=== PATIENT | female | born 1965 | race Caucasian/White ===

== ENCOUNTER 2017-08-16 12:19 | Emergency (ER) | payer OTHER, SELFPAY ==
[2017-08-16 12:55] VITALS: BP 108/84; PULSE 68; RESP 20; TEMP 36.6; O2SAT 96; BMI 40.2
--- NOTE | 2017-08-16 13:36 | HMH.EDUTC ---
[facility] [place] Disposition Clinical Impression: Acute bronchitis Qualifiers: Bronchitis organism: other organism Qualified Code(s): J20.8 - Acute bronchitis due to other specified organisms Disposition: Home, Self-Care Condition on Discharge: Good Additional Instructions: inCrease fluids Rest Follow-up with primary care this week Tylenol or ibuprofen as needed for pain or fever If symptoms worsen or do not improve return or be seen in the ER Prescriptions: Azithromycin [Zithromax 250mg tab] 250 mg PO DIRECTED #6 tab Benzonatate [Tessalon Perle 100mg Cap] 100 mg PO BID PRN 7 Days #14 cap PRN Reason: Cough Time of Disposition: 13:41 Medical Decision Making Vital Signs: 08/16/17 12:55 Temperature 97.9 F Temperature Source Temporal Artery Scan Pulse Rate [Radial] 68 Respiratory Rate 20 Blood Pressure [Right Arm] 108/84 Blood Pressure Mean [Right Arm] 92 Blood Pressure Source [Right Arm] Automatic Cuff Blood Pressure Position [Right Arm] Sitting 02 Sat by Pulse Oximetry 96 Oxygen Delivery Method Room Air - Niall Inquiry Pt receiving controlled substance: No [facility] [place] HPI - General Chief complaint: Fever Stated complaint: congested fever Time Seen by Provider: 08/16/17 13:36 Mode of Arrival: Ambulatory Source of Information: Patient Limitations: No Limitations Description of Symptoms (Recalled from Triage Doc. by RN): COUGHING AND CAN'T SLEEP AT NIGHT X 1 WEEK HEENT Symptoms (Recalled from RN notes): No Resp Symptoms (Recalled from RN notes): Yes Skin Symptoms (Recalled from RN notes): No MS Symptoms (Recalled from RN notes): No Functional Status (Recalled from RN notes): NA - History of Present Illness Provider Complaint: 52-year-old female presents today for coughing up yellow sputum, fever, and pain in the chest from coughing for 1 week - Related Data Home Medications Medication Instructions Recorded Confirmed Albuterol Sulfate [Albuterol HFA 1 % * DAILY 08/16/17 08/16/17 Inhaler] Budesonide [Pulmicort Flexhaler] 90 mcg INHALATION DAILY 08/16/17 08/16/17 Omeprazole [Omeprazole 20mg 20 mg PO DAILY 08/16/17 08/16/17 Capsule] Simvastatin [Simvastatin] 20 mg PO DAILY 08/16/17 08/16/17 Sucralfate [Sucralfate 1gm 1 gm PO DAILY 08/16/17 08/16/17 Tab] Topiramate [Topiramate] 50 mg PO DAILY 08/16/17 08/16/17 diazePAM [diazePAM 5mg Tablet] 5 mg PO DAILY 08/16/17 08/16/17 Previous Rx's Medication Instructions Recorded Azithromycin [Zithromax 250mg 250 mg PO DIRECTED #6 tab 08/16/17 tab] Benzonatate [Tessalon Perle 100mg 100 mg PO BID PRN 7 Days #14 cap 08/16/17 Cap] Allergies Allergy/AdvReac Type Severity Reaction Status Date / Time codeine [CODEINE] Allergy Unknown CHEST PAIN Unverified 05/25/17 14:39 ibuprofen [IBUPROFEN] Allergy Unknown CHEST Unverified 05/25/17 14:39 PAIN, STOMACH PAIN - Worker's Comp Is this a Worker's Comp case?: No [facility] History I have reviewed the patient's past medical history: Yes - Social History Alcohol Intake: never - Psychiatric History Expresses thoughts of harming self/others: None Suicide Plan Description: No Plan ROS Obtained: Yes All systems reviewed & no additional complaints, Yes Systems reviewed as appropriate & no additional complaints - Constitutional Constitutional: Reports system reviewed and no additional complaints, except as docu, Denies chills, Reports fever(s), Denies stops breathing during sleep - Eyes Eyes: Reports system reviewed and no additional complaints, except as docu - ENT Ears, Nose, Mouth, and Throat: Reports system reviewed and no additional complaints, except as docu, Denies headache(s), Reports nasal congestion, Denies sore throat - Cardiovascular Cardiovascular: Reports system reviewed and no additional complaints, except as docu - Respiratory Respiratory: Yes system reviewed and no additional complaints, except as docu, Yes as per HPI, Yes change in phle
--- NOTE | 2017-08-16 13:39 | ED_ITS ---
[facility] [place] Clinical Impression: Acute bronchitis Qualifiers: Bronchitis organism: other organism Qualified Code(s): J20.8 - Acute bronchitis due to other specified organisms Disposition: Home, Self-Care Condition on Discharge: Good Additional Instructions: inCrease fluids Rest Follow-up with primary care this week Tylenol or ibuprofen as needed for pain or fever If symptoms worsen or do not improve return or be seen in the ER Prescriptions: Azithromycin [Zithromax 250mg tab] 250 mg PO DIRECTED #6 tab Benzonatate [Tessalon Perle 100mg Cap] 100 mg PO BID PRN 7 Days #14 cap PRN Reason: Cough Time of Disposition: 13:41 Medical Decision Making Vital Signs: 08/16/17 12:55 Temperature 97.9 F Temperature Source Temporal Artery Scan Pulse Rate [Radial] 68 Respiratory Rate 20 Blood Pressure [Right Arm] 108/84 Blood Pressure Mean [Right Arm] 92 Blood Pressure Source [Right Arm] Automatic Cuff Blood Pressure Position [Right Arm] Sitting 02 Sat by Pulse Oximetry 96 Oxygen Delivery Method Room Air - Niall Inquiry Pt receiving controlled substance: No [facility] [place]PI - General Chief complaint: Fever Stated complaint: congested fever Time Seen by Provider: 08/16/17 13:36 Mode of Arrival: Ambulatory Source of Information: Patient Limitations: No Limitations Description of Symptoms (Recalled from Triage Doc. by RN): COUGHING AND CAN'T SLEEP AT NIGHT X 1 WEEK HEENT Symptoms (Recalled from RN notes): No Resp Symptoms (Recalled from RN notes): Yes Skin Symptoms (Recalled from RN notes): No MS Symptoms (Recalled from RN notes): No Functional Status (Recalled from RN notes): NA - History of Present Illness Provider Complaint: 52-year-old female presents today for coughing up yellow sputum, fever, and pain in the chest from coughing for 1 week - Related Data Home Medications Medication Instructions Recorded Confirmed Albuterol Sulfate [Albuterol HFA 1 % * DAILY 08/16/17 08/16/17 Inhaler] Budesonide [Pulmicort Flexhaler] 90 mcg INHALATION DAILY 08/16/17 08/16/17 Omeprazole [Omeprazole 20mg 20 mg PO DAILY 08/16/17 08/16/17 Capsule] Simvastatin [Simvastatin] 20 mg PO DAILY 08/16/17 08/16/17 Sucralfate [Sucralfate 1gm 1 gm PO DAILY 08/16/17 08/16/17 Tab] Topiramate [Topiramate] 50 mg PO DAILY 08/16/17 08/16/17 diazePAM [diazePAM 5mg Tablet] 5 mg PO DAILY 08/16/17 08/16/17 Previous Rx's Medication Instructions Recorded Azithromycin [Zithromax 250mg 250 mg PO DIRECTED #6 tab 08/16/17 tab] Benzonatate [Tessalon Perle 100mg 100 mg PO BID PRN 7 Days #14 cap 08/16/17 Cap] Allergies Allergy/AdvReac Type Severity Reaction Status Date / Time codeine [CODEINE] Allergy Unknown CHEST PAIN Unverified 05/25/17 14:39 ibuprofen [IBUPROFEN] Allergy Unknown CHEST Unverified 05/25/17 14:39 PAIN, STOMACH PAIN - Worker's Comp Is this a Worker's Comp case?: No H History I have reviewed the patient's past medical history: Yes - Social History Alcohol Intake: never - Psychiatric History Expresses thoughts of harming self/others: None Suicide Plan Description: No Plan ROS Obtained: Yes All systems reviewed & no additional complaints, Yes Systems
[2017-08-16 13:43] VITALS: BP 108/84; PULSE 68; RESP 20; TEMP 36.6
== END 2017-08-16 13:45 | disposition home or self-care (01) ==
PROVIDERS: Emergency Provider Nurse Practitioner Family
DX: J20.8 Acute bronchitis due to other specified organisms (principal); Z79.899 Other long term (current) drug therapy; Z88.6 Allergy status to analgesic agent
CPT/HCPCS: 99202

== ENCOUNTER 2017-08-30 20:50 | Emergency (ER) | payer OTHER, SELFPAY ==
[2017-08-30 21:16] VITALS: BP 150/52; PULSE 80; RESP 20; TEMP 36.6; O2SAT 95; BMI 40.2
--- NOTE | 2017-08-30 21:29 | HMH.EDUTC ---
[facility] [place] Disposition Clinical Impression: Acute muscle stiffness of neck Disposition: Home, Self-Care Condition on Discharge: Good Instructions: DI for Neck Sprain Additional Instructions: * Flexeril as needed for muscle spasm/stiffness but remember, it WILL cause drowsiness. Start with half and if tolerate ok and need more, increase to full tablet. You can NOT take it and drive, operate machinery or care for small children * Ice x15-20 mins 3-4 times a day but if that doesn't help, try moist heat x15-20 mins 3-4 times a day to affected area * Keep this area active. No movement leads to more stiffness. However, take it easy too and avoid heavy lifting, pushing, pulling. * Go back to normal sleeping positions. Consider neck support when sleeping Follow up with primary care in [facility] if no improvement over the next 48 hours AND for any new or worsening symptoms. Prescriptions: Cyclobenzaprine HCl [Flexeril 10mg tablet] 5 - 10 mg PO Q8HP PRN 30 Days #8 tab PRN Reason: Muscle Spasm Time of Disposition: 21:37 Medical Decision Making - Niall Inquiry Pt receiving controlled substance: No Vital Signs: 08/30/17 21:16 Temperature 97.9 F Temperature Source Temporal Artery Scan Pulse Rate [Brachial] 80 Respiratory Rate 20 Blood Pressure [Right Arm] 150/52 Blood Pressure Mean [Right Arm] 84 Blood Pressure Position [Right Arm] Sitting 02 Sat by Pulse Oximetry 95 [facility] [place] HPI - General Stated complaint: left luc of head and neck Time Seen by Provider: 08/30/17 21:05 Mode of Arrival: Ambulatory Source of Information: Patient Limitations: No Limitations Description of Symptoms (Recalled from Triage Doc. by RN): LEFT SIDE OF NECK AND FACE IS HURTING HEENT Symptoms (Recalled from RN notes): Yes Resp Symptoms (Recalled from RN notes): No Skin Symptoms (Recalled from RN notes): No MS Symptoms (Recalled from RN notes): No Functional Status (Recalled from RN notes): NA - History of Present Illness Provider Complaint: c/o left neck pain. Denies facial pain as documented by triage nurse. Radiates from behind ear down into my neck . Worse with neck ROM. Denies headaches. Hx of bronchitis that is improving. Has been sleeping on extra pillows or in recliner. Tylenol hasn't helped. Hasn't taken or tried anything else. No dizziness or pain in ear. Allergy to ibuprofen. - Related Data Home Medications Medication Instructions Recorded Confirmed Albuterol Sulfate [Albuterol HFA 1 % * DAILY 08/16/17 08/16/17 Inhaler] Budesonide [Pulmicort Flexhaler] 90 mcg INHALATION DAILY 08/16/17 08/16/17 Omeprazole [Omeprazole 20mg 20 mg PO DAILY 08/16/17 08/16/17 Capsule] Simvastatin [Simvastatin] 20 mg PO DAILY 08/16/17 08/16/17 Sucralfate [Sucralfate 1gm 1 gm PO DAILY 08/16/17 08/16/17 Tab] Topiramate [Topiramate] 50 mg PO DAILY 08/16/17 08/16/17 diazePAM [diazePAM 5mg Tablet] 5 mg PO DAILY 08/16/17 08/16/17 Previous Rx's Medication Instructions Recorded Azithromycin [Zithromax 250mg 250 mg PO DIRECTED #6 tab 08/16/17 tab] Benzonatate [Tessalon Perle 100mg 100 mg PO BID PRN 7 Days #14 cap 08/16/17 Cap] Cyclobenzaprine HCl [Flexeril 10mg 5 - 10 mg PO Q8HP PRN 30 Days #8 08/30/17 tablet] tab Allergies Allergy/AdvReac Type Severity Reaction Status Date / Time codeine [CODEINE] Allergy Unknown CHEST PAIN Unverified 05/25/17 14:39 ibuprofen [IBUPROFEN] Allergy Unknown CHEST Unverified 05/25/17 14:39 PAIN, STOMACH PAIN - Worker's Comp Is this a Worker's Comp case?: No [facility] History I have reviewed the patient's past medical history: Yes Medical History: Denies:: Diabetes Mellitus Type 1, Diabetes Mellitus Type 2, Hypertension Other Surgeries: Yes: No Previous Surgery - Social History Alcohol Intake: never - Psychiatric History Expresses thoughts of harming self/others: None Suicide Plan Description: No Plan ROS Obtained: Yes Systems reviewed as
--- NOTE | 2017-08-30 21:33 | ED_ITS ---
[facility] [place] Disposition Clinical Impression: Acute muscle stiffness of neck Disposition: Home, Self-Care Condition on Discharge: Good Instructions: DI for Neck Sprain Additional Instructions: * Flexeril as needed for muscle spasm/stiffness but remember, it WILL cause drowsiness. Start with half and if tolerate ok and need more, increase to full tablet. You can NOT take it and drive, operate machinery or care for small children * Ice x15-20 mins 3-4 times a day but if that doesn't help, try moist heat x15- 20 mins 3-4 times a day to affected area * Keep this area active. No movement leads to more stiffness. However, take it easy too and avoid heavy lifting, pushing, pulling. * Go back to normal sleeping positions. Consider neck support when sleeping Follow up with primary care in [facility] if no improvement over the next 48 hours AND for any new or worsening symptoms. Prescriptions: Cyclobenzaprine HCl [Flexeril 10mg tablet] 5 - 10 mg PO Q8HP PRN 30 Days # 8 tab PRN Reason: Muscle Spasm Time of Disposition: 21:37 Medical Decision Making - Niall Inquiry Pt receiving controlled substance: No Vital Signs: 08/30/17 21:16 Temperature 97.9 F Temperature Source Temporal Artery Scan Pulse Rate [Brachial] 80 Respiratory Rate 20 Blood Pressure [Right Arm] 150/52 Blood Pressure Mean [Right Arm] 84 Blood Pressure Position [Right Arm] Sitting 02 Sat by Pulse Oximetry 95 [facility] [place] HPI - General Stated complaint: left luc of head and neck Time Seen by Provider: 08/30/17 21:05 Mode of Arrival: Ambulatory Source of Information: Patient Limitations: No Limitations Description of Symptoms (Recalled from Triage Doc. by RN): LEFT SIDE OF NECK AND FACE IS HURTING HEENT Symptoms (Recalled from RN notes): Yes Resp Symptoms (Recalled from RN notes): No Skin Symptoms (Recalled from RN notes): No MS Symptoms (Recalled from RN notes): No Functional Status (Recalled from RN notes): NA - History of Present Illness Provider Complaint: c/o left neck pain. Denies facial pain as documented by triage nurse. Radiates from behind ear down into my neck . Worse with neck ROM. Denies headaches. Hx of bronchitis that is improving. Has been sleeping on extra pillows or in recliner. Tylenol hasn't helped. Hasn't taken or tried anything else. No dizziness or pain in ear. Allergy to ibuprofen. - Related Data Home Medications Medication Instructions Recorded Confirmed Albuterol Sulfate [Albuterol HFA 1 % * DAILY 08/16/17 08/16/17 Inhaler] Budesonide [Pulmicort Flexhaler] 90 mcg INHALATION DAILY 08/16/17 08/16/17 Omeprazole [Omeprazole 20mg 20 mg PO DAILY 08/16/17 08/16/17 Capsule] Simvastatin [Simvastatin] 20 mg PO DAILY 08/16/17 08/16/17 Sucralfate [Sucralfate 1gm 1 gm PO DAILY 08/16/17 08/16/17 Tab] Topiramate [Topiramate] 50 mg PO DAILY 08/16/17 08/16/17 diazePAM [diazePAM 5mg Tablet] 5 mg PO DAILY 08/16/17 08/16/17 Previous Rx's Medication Instructions Recorded Azithromycin [Zithromax 250mg 250 mg PO DIRECTED #6 tab 08/16/17 tab] Benzonatate [Tessalon Perle 100mg 100 mg PO BID PRN 7 Days #14 cap 08/16/17 Cap] Cyclobenzaprine HCl [Flexeril 10mg 5 - 10 mg PO Q8HP PRN 30 Days #8 08/30/17 tablet] tab Allergies Allergy/AdvReac Type Severity Reaction Status Date / Time
[2017-08-30 21:35] VITALS: BP 150/52; PULSE 80; RESP 20; TEMP 36.6; O2SAT 95
[2017-08-30 21:56] VITALS: BP 138/82; PULSE 88; RESP 20; TEMP 37; O2SAT 99
== END 2017-08-30 21:57 | disposition home or self-care (01) ==
PROVIDERS: Emergency Provider Nurse Practitioner Family; Family Provider Internal Medicine Adolescent Medicine; PCP Surgery
DX: M54.2 Cervicalgia (principal); Z88.6 Allergy status to analgesic agent
CPT/HCPCS: 99201

== ENCOUNTER → 2018-01-12 08:58 | Outpatient (CLI) | payer OTHER, SELFPAY ==
[2018-01-12 10:11] LABS: Basophils % 0.3 % (0.1-2.0); Eosinophils # 0.1 K/mm3 (0.0-0.4); Eosinophils % 1.1 % (0.1-12.0); Hematocrit 32.3 % (37.0-47.0); Hemoglobin 10.6 g/dL (12.2-16.2); Lymphocytes # 1.1 K/mm3 (0.7-4.5); Lymphocytes % 25.8 K/mm3 (10-50); Mean Corpuscular HGB Conc 32.9 g/dL (31.8-35.4); Mean Corpuscular Hemoglobin 26.9 pg (27.0-31.2); Mean Corpuscular Volume 81.6 fl (81-99); Mean Platelet Volume 7.2 fl (7.4-10.4); Monocytes # 0.3 K/mm3 (0.1-1.0); Monocytes % 6.4 % (1.7-9.3); Neutrophils # 2.8 K/mm3 (1.8-7.8); Neutrophils % 66.4 % (37.0-80.0); Platelet Count 288 K/mm3 (142-424); Red Blood Count 3.95 M/mm3 (4.20-5.40); Red Cell Distribution Width 14.5 % (11.5-17.5); White Blood Count 4.2 K/mm3 (4.8-10.8)
[2018-01-12 10:29] LABS: Alanine Aminotransferase 27 U/L (12-78); Albumin Level 3.4 gm/dL (3.4-5.0); Albumin/Globulin Ratio 0.9 (1.1-1.8); Alkaline Phosphatase 89 U/L (46-116); Anion Gap 12.4 mEq/L (5-15); Aspartate Amino Transferase 21 U/L (15-37); Bilirubin,Total 0.7 mg/dL (0.2-1.0); Blood Urea Nitrogen 11 mg/dL (7-18); Calcium 9.3 mg/dL (8.5-10.1); Carbon Dioxide 25 mmol/L (21.0-32.0); Chloride 107 mmol/L (98-107); Creatinine,Serum 0.87 mg/dL (0.55-1.02); Estimated Glomerular Filt Rate 68 ml/min (>60); GFR (African American) 82 ML/MIN (>60); Globulin 3.9 gm/dl (1.3-3.2); Glucose 95 mg/dL (74-106); Potassium 3.4 mmoL/L (3.5-5.1); Sodium 141 mmol/L (136-145); Total Protein,Serum 7.3 gm/dL (6.4-8.2); Vancomycin,Trough 15.5 mcg/ml (10.0-20.0)
[2018-01-12 10:32] LABS: C-Reactive Protein 0.2 mg/L (0.0-0.9)
== END ==
PROVIDERS: Visit Provider Internal Medicine Infectious Disease
DX: Z00.00 Encounter for general adult medical examination without abnormal findings (principal)
CPT/HCPCS: 80053; 80202; 85025; 86140

== ENCOUNTER 2018-01-17 09:59 | Outpatient (CLI) | payer OTHER, SELFPAY ==
[2018-01-17 10:15] VITALS: BP 122/70; PULSE 62; RESP 20; TEMP 37.1; O2SAT 96
[2018-01-17 10:31] VITALS: BMI 37.5
[2018-01-17 10:45] VITALS: BP 123/70; PULSE 68; RESP 20; TEMP 37.1; O2SAT 96
[2018-01-17 10:53] LABS: Basophils % 0.2 % (0.1-2.0); Eosinophils % 0.5 % (0.1-12.0); Hemoglobin 10.3 g/dL (12.2-16.2); Lymphocytes # 0.8 K/mm3 (0.7-4.5); Lymphocytes % 21.3 K/mm3 (10-50); Mean Corpuscular HGB Conc 33.1 g/dL (31.8-35.4); Mean Corpuscular Volume 81.5 fl (81-99); Mean Platelet Volume 7.9 fl (7.4-10.4); Monocytes # 0.3 K/mm3 (0.1-1.0); Monocytes % 8.3 % (1.7-9.3); Neutrophils # 2.7 K/mm3 (1.8-7.8); Neutrophils % 69.7 % (37.0-80.0); Platelet Count 238 K/mm3 (142-424); Red Cell Distribution Width 14.7 % (11.5-17.5); White Blood Count 3.9 K/mm3 (4.8-10.8)
[2018-01-17 11:13] LABS: Alanine Aminotransferase 26 U/L (12-78); Albumin Level 3.4 gm/dL (3.4-5.0); Albumin/Globulin Ratio 0.9 (1.1-1.8); Alkaline Phosphatase 89 U/L (46-116); Aspartate Amino Transferase 18 U/L (15-37); Bilirubin,Total 0.6 mg/dL (0.2-1.0); Blood Urea Nitrogen 14 mg/dL (7-18); C-Reactive Protein 0.7 mg/L (0.0-0.9); Calcium 8.1 mg/dL (8.5-10.1); Carbon Dioxide 26 mmol/L (21.0-32.0); Chloride 105 mmol/L (98-107); Creatinine Clearance Estimated 98 mL/min (0-300); Creatinine,Serum 0.97 mg/dL (0.55-1.02); Estimated Glomerular Filt Rate 60 ml/min (>60); GFR (African American) 73 ML/MIN (>60); Glucose 88 mg/dL (74-106); Sodium 141 mmol/L (136-145); Total Protein,Serum 7.4 gm/dL (6.4-8.2); Vancomycin,Trough 15.8 mcg/ml (10.0-20.0)
== END 2018-01-17 10:45 | disposition home or self-care (01) ==
LOC: INF 09:59
PROVIDERS: Family Provider Internal Medicine Adolescent Medicine; PCP Surgery; Visit Provider Internal Medicine Infectious Disease
DX: Z45.2 Encounter for adjustment and management of vascular access device (principal)
CPT/HCPCS: 80053; 80202; 85025; 86140; G0463

== ENCOUNTER 2018-03-22 08:30 | Outpatient (RCR) | payer OTHER, SELFPAY | END 2018-03-22 08:31 | disposition home or self-care (01) | LOC: PT 08:30 | PROVIDERS: Family Provider Internal Medicine Adolescent Medicine; PCP Surgery; Visit Provider Physician Assistant Medical | DX: S82.143A Displaced bicondylar fracture of unspecified tibia, initial encounter for closed fracture (principal); S72.91XA Unspecified fracture of right femur, initial encounter for closed fracture | CPT/HCPCS: 97035; 97110; 97116; 97140; 97163; 97164 ==

== ENCOUNTER → 2018-06-16 14:14 | Outpatient (CLI) | payer OTHER, SELFPAY ==
[2018-06-16 14:42] LABS: Basophils # 0.1 K/mm3 (0-0.2); Basophils % 1.1 % (0.1-2.0); Eosinophils # 0.3 K/mm3 (0.0-0.4); Eosinophils % 3.3 % (0.1-12.0); Hematocrit 38.3 % (37.0-47.0); Hemoglobin 12.4 g/dL (12.2-16.2); Lymphocytes # 1.7 K/mm3 (0.7-4.5); Lymphocytes % 21.6 % (10-50); Mean Corpuscular HGB Conc 32.3 g/dL (31.8-35.4); Mean Corpuscular Hemoglobin 27.7 pg (27.0-31.2); Mean Corpuscular Volume 85.7 fl (81-99); Monocytes # 0.3 K/mm3 (0.1-1.0); Monocytes % 4.2 % (1.7-9.3); Neutrophils # 5.3 K/mm3 (1.8-7.8); Neutrophils % 69.9 % (37.0-80.0); Platelet Count 349 K/mm3 (142-424); Red Blood Count 4.47 M/mm3 (4.20-5.40); Red Cell Distribution Width 14.3 % (11.5-17.5); White Blood Count 7.6 K/mm3 (4.8-10.8)
[2018-06-16 15:28] LABS: Erythrocyte Sedimentation Rate 41 mm/hr (0-30)
[2018-06-16 15:49] LABS: Alanine Aminotransferase 22 U/L (12-78); Albumin Level 3.7 gm/dL (3.4-5.0); Albumin/Globulin Ratio 0.9 (1.1-1.8); Alkaline Phosphatase 110 U/L (46-116); Anion Gap 17.1 mEq/L (5-15); Aspartate Amino Transferase 20 U/L (15-37); Bilirubin,Total 0.4 mg/dL (0.2-1.0); Blood Urea Nitrogen 19 mg/dL (7-18); Carbon Dioxide 24 mmol/L (21.0-32.0); Chloride 103 mmol/L (98-107); Creatinine,Serum 1.01 mg/dL (0.55-1.02); Estimated Glomerular Filt Rate 57 ml/min (>60); Free T4 (Free Thyroxine) 0.96 ng/dl (0.76-1.46); GFR (African American) 69 ML/MIN (>60); Globulin 4.3 gm/dl (1.3-3.2); Glucose 95 mg/dL (74-106); Potassium 4.1 mmoL/L (3.5-5.1); Sodium 140 mmol/L (136-145); Thyroid Stimulating Hormone 2.49 uIU/ml (0.358-3.740)
[2018-06-16 15:50] LABS: C-Reactive Protein < 0.2 mg/L (0.0-0.9)
[2018-06-18 22:49] LABS: Calcium, Ionized 5.1 mg/dL (4.5-5.6); Parathyroid Hormone Intact 56 pg/mL (15-65)
[2018-06-22 12:57] LABS: Testosterone, Total, LC/MS 20.3 ng/dL (.)
== END ==
PROVIDERS: Visit Provider Orthopaedic Surgery
DX: S82.143A Displaced bicondylar fracture of unspecified tibia, initial encounter for closed fracture (principal)
CPT/HCPCS: 36415; 80053; 82330; 82652; 83970; 84403; 84439; 84443; 85025; 85651; 86140

== ENCOUNTER → 2018-06-28 14:42 | Outpatient (CLI) | payer OTHER, SELFPAY ==
--- NOTE | 2018-06-28 14:46 | CT_ITS ---
CT femur RT wo con INDICATION: Right leg pain within ability to bear weight on the right leg. Prior surgery in the 2018. ITS.REASON: FEMUR FX, TIBIA PLATEAU FX ORDERING PHYSICIAN: Anand Richter MD PATIENT AGE: 53 years COMPARISON: None TECHNIQUE: Axial images are obtained without contrast. Sagittal and coronal reformatted images are reviewed as well. All CT scans at the facility use one or more dose reduction, viz: automated exposure control, ma/kV adjustment per patient size (including targeted exams where dose is matched to indication, i.e. head), or iterative reconstruction technique. FINDINGS: There are no recent radiographs available for comparison. Extensive artifact is present from the right femoral intramedullary miguel and from right lateral tibial bone plate with multiple screws. The right hip and femoral neck have an unremarkable appearance. There is a healed fracture involving the shaft of the right femur at the proximal to mid third. An oblique fracture is present involving the distal shaft of the femur. The fracture line is still visible. There is some sclerosis of the fracture line margins. This is consistent with a nonbony union. There is good alignment. No evidence of loosening of the femoral intramedullary miguel or the screws fixating the miguel proximally and distally. Extensive artifact is present from a lateral proximal tibial bone plate with multiple screws stabilizing an old tibial plateau fracture. There is good alignment. There is a defect within the proximal tibia laterally filled in with bone cement material. There is some subcutaneous increased soft tissue density along right lateral aspect of the knee which may be due to scarring from previous surgery. IMPRESSION: 1. Prior ORIF of proximal and distal femoral fractures as well as the lateral tibial plateau fracture with hardware present as described above. There is good alignment of the fracture fragments. 2. 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
== END ==
PROVIDERS: PCP Nurse Practitioner; Visit Provider Orthopaedic Surgery
DX: S72.91XA Unspecified fracture of right femur, initial encounter for closed fracture (principal); S82.143A Displaced bicondylar fracture of unspecified tibia, initial encounter for closed fracture
CPT/HCPCS: 73700

== ENCOUNTER → 2018-10-13 13:37 | Outpatient (CLI) | payer OTHER, SELFPAY ==
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
== END ==
PROVIDERS: PCP Nurse Practitioner; Visit Provider Nurse Practitioner
DX: M79.604 Pain in right leg (principal)
CPT/HCPCS: 93971

== ENCOUNTER → 2019-02-27 13:38 | Outpatient (CLI) | payer OTHER, SELFPAY ==
[2019-02-27 14:46] LABS: C-Reactive Protein 0.4 mg/dL (0.0-0.9)
[2019-02-27 15:49] LABS: Erythrocyte Sedimentation Rate 27 mm/hr (0-30)
== END ==
PROVIDERS: Visit Provider Orthopaedic Surgery Adult Reconstructive Orthopaedic Surgery
DX: M25.561 Pain in right knee (principal)
CPT/HCPCS: 36415; 85651; 86140

== ENCOUNTER → 2019-05-25 17:19 | Outpatient (CLI) | payer OTHER, SELFPAY ==
[2019-05-25 17:31] LABS: Basophils # 0.1 K/mm3 (0-0.2); Basophils % 0.7 % (0.1-2.0); Eosinophils # 0.2 K/mm3 (0.0-0.4); Eosinophils % 1.7 % (0.1-12.0); Hematocrit 38.8 % (37.0-47.0); Hemoglobin 12.7 g/dL (12.2-16.2); Lymphocytes # 2.1 K/mm3 (0.7-4.5); Lymphocytes % 21.3 % (10-50); Mean Corpuscular HGB Conc 32.8 g/dL (31.8-35.4); Mean Corpuscular Hemoglobin 28.8 pg (27.0-31.2); Mean Corpuscular Volume 87.7 fl (81-99); Mean Platelet Volume 7.4 fl (7.4-10.4); Monocytes # 0.4 K/mm3 (0.1-1.0); Neutrophils # 7.2 K/mm3 (1.8-7.8); Neutrophils % 72.4 % (37.0-80.0); Platelet Count 379 K/mm3 (142-424); Red Blood Count 4.42 M/mm3 (4.20-5.40); Red Cell Distribution Width 14.2 % (11.5-17.5)
[2019-05-25 18:21] LABS: Erythrocyte Sedimentation Rate 37 mm/hr (0-30)
[2019-05-25 19:08] LABS: C-Reactive Protein 0.6 mg/dL (0.0-0.9)
== END ==
PROVIDERS: Visit Provider Physician Assistant Medical
DX: S82.143A Displaced bicondylar fracture of unspecified tibia, initial encounter for closed fracture (principal)
CPT/HCPCS: 36415; 85025; 85651; 86140

== ENCOUNTER → 2020-03-28 09:15 | Outpatient (CLI) | payer OTHER, SELFPAY ==
--- NOTE | 2020-03-28 09:15 | MM_ITS ---
PROCEDURE: MM DIG SCREENING MAMM BI W/CAD Digital Breast Tomosynthesis Included CLINICAL INDICATION: screening There is no personal or family history of breast cancer. The patient currently is on Premarin. COMPARISON: MG DMSB DIG MAMM-SCREEN NATHANAEL from 04/17/2013 MG DMSB DIG MAMM-SCREEN NATHANAEL from 08/02/2014 MG DMSB DIG MAMM-SCREEN NATHANAEL from 12/20/2015 TECHNIQUE: Standard CC and MLO images and 3D Tomosynthesis was obtained. R2 CAD reviewed. FINDINGS: The breasts are composed primarily of fat with minimal scattered fibroglandular densities in the central portions of both breasts. Lesion in either breast and no suspicious microcalcifications. IMPRESSION: Fatty type breast parenchyma with no suspicious lesions seen BI-RAD Category: 1 Negative FOLLOW-UP: 1YR 1 Year Follow-up (A letter has been sent to the patient regarding results of the study.) Dictated by: Dr. Derrell Hinds MD 03/31/2020 16:28 Dr. Derrell Hinds MD in [place] 03/31/2020 16:28
== END ==
PROVIDERS: PCP Family Medicine; Visit Provider Family Medicine
DX: Z12.31 Encounter for screening mammogram for malignant neoplasm of breast (principal)
CPT/HCPCS: 77063; 77067

== ENCOUNTER 2020-05-27 14:44 | Outpatient (RCR) | payer OTHER, SELFPAY ==
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
== END 2020-05-27 14:50 | disposition home or self-care (01) ==
LOC: PT 14:44
PROVIDERS: PCP Family Medicine; Visit Provider Family Medicine
DX: G89.21 Chronic pain due to trauma (principal)
CPT/HCPCS: 97110; 97140; 97163

== ENCOUNTER → 2020-07-15 14:00 | Outpatient (CLI) | payer OTHER, SELFPAY ==
[2020-07-15 14:15] LABS: Alanine Aminotransferase 16 U/L (12-78); Albumin Level 4.4 g/dl (3.5-5.0); Albumin/Globulin Ratio 1.2 (1.1-1.8); Alkaline Phosphatase 136 U/L (38-126); Anion Gap 14.1 mEq/L (5-15); Aspartate Amino Transferase 28 U/L (14-36); Bilirubin,Total 0.5 mg/dl (0.2-1.3); Blood Urea Nitrogen 12 mg/dl (7-17); Calcium 9.8 mg/dl (8.4-10.2); Carbon Dioxide 25 mmol/L (22.0-30.0); Chloride 105 mmol/L (98-107); Chol/HDL Ratio 2.6 (1-3.5); Cholesterol 203 mg/dl (140-200); Estimated Glomerular Filt Rate 65 ml/min (>60); GFR (African American) 78 ML/MIN (>60); Globulin 3.8 g/dL (1.3-3.2); Glucose 92 mg/dl (74-100); HDL Cholesterol 78 mg/dl (40-60); Potassium 4.1 mmoL/L (3.5-5.1); Sodium 140 mmol/L (136-145); Total Protein,Serum 8.2 g/dl (6.3-8.2); Triglycerides 169 mg/dl (30-150); VLDL Cholesterol 34 mg/dL (0-40)
[2020-07-15 14:18] LABS: Basophils # 0.1 K/mm3 (0-0.2); Basophils % 0.6 % (0.1-2.0); Eosinophils # 0.2 K/mm3 (0.0-0.4); Eosinophils % 2.6 % (0.1-12.0); Hematocrit 40.7 % (37.0-47.0); Hemoglobin 12.7 g/dL (12.2-16.2); Lymphocytes # 2.2 K/mm3 (0.7-4.5); Lymphocytes % 26.8 % (10-50); Mean Corpuscular HGB Conc 31.4 g/dL (31.8-35.4); Mean Corpuscular Hemoglobin 27.3 pg (27.0-31.2); Mean Corpuscular Volume 87.1 fl (81-99); Mean Platelet Volume 8.9 fl (7.4-10.4); Monocytes # 0.3 K/mm3 (0.1-1.0); Monocytes % 4.2 % (1.7-9.3); Neutrophils # 5.4 K/mm3 (1.8-7.8); Neutrophils % 65.8 % (37.0-80.0); Platelet Count 353 K/mm3 (142-424); Red Blood Count 4.66 M/mm3 (4.20-5.40); Red Cell Distribution Width 14.6 % (11.5-17.5); White Blood Count 8.1 K/mm3 (4.8-10.8)
[2020-07-15 14:26] LABS: Direct LDL Cholesterol 86.41 mg/dL (100-129)
[2020-07-15 14:44] LABS: Thyroid Stimulating Hormone 2.92 uIU/mL (0.465-4.68)
== END ==
PROVIDERS: Visit Provider Family Medicine
DX: I10 Essential (primary) hypertension (principal)
CPT/HCPCS: 80053; 80061; 84443; 85025

== ENCOUNTER → 2020-07-29 13:37 | Outpatient (CLI) | payer OTHER, SELFPAY ==
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
== END ==
PROVIDERS: PCP Family Medicine; Visit Provider Family Medicine
DX: R60.0 Localized edema (principal)
CPT/HCPCS: 93970

== ENCOUNTER → 2020-08-12 11:06 | Outpatient (CLI) | payer OTHER, SELFPAY ==
--- NOTE | 2020-08-12 11:13 | XR_ITS ---
PROCEDURE: XR KNEE RT 2V CLINICAL INDICATION: pain COMPARISON: CR [id number] KNEE-4 OR 5 VIEWS-RT from 03/11/[address] femur RT wo con from 06/28/2018 CR XR TIBIA FIBULA RT 2V from 08/12/2020 CR XR HIP RT 2-3V W/PELVIS from 08/12/2020 FINDINGS: Right hip: No acute fracture or dislocation. Right femur: There is a tract present in the intramedullary portion of femur from interval intramedullary miguel removal. There is a faint lucency involving the junction of the proximal mid 1/3 of the right femur and may represent an old fracture. Defects are present from cortical screw removal. Right knee: There has been an interval removal of the intramedullary miguel and cortical screws from the right femur. There is an oblique fracture involving the distal shaft of the femur with 13 mm medial displacement of the distal fracture fragment and mild overlapping of the fracture fragments. There is some hyperdensity noted along the lateral and anterior aspect aspect of the fracture line and could be related to sequela from antibiotic bead placement versus heterotopic ossification. There are no postoperative studies available since 06/28/2018.. There is some callus formation along the dorsal and distal aspect of the femur. The lateral bone plate and multiple cortical screws have been removed from the lateral aspect of the proximal tibia. There is an old lateral tibial plateau fracture with hyperdensity at the fracture site which could be due to prior methylmethacrylate placement. Right tib fib: Defects are present within the proximal tibia from interval cortical screw removal. The mid distal aspect of the tibia and fibula have an unremarkable appearance. IMPRESSION: Postsurgical changes of the femur, knee, and proximal tibia with a displaced fracture of the distal femur. There has been interval hardware removal from the femur and tibia compared to the previous exam. The fracture of the distal femur is somewhat displaced. This fracture was present on the older study but was without displacement. Mildly depressed lateral tibial plateau fracture also noted with methylmethacrylate and cortical regularity of the articular surface. Please correlate with more recent postoperative studies to determine if these findings are new. Dictated by: Jaylen Root MD 08/12/2020 12:29 Jaylen Root MD in [facility] 08/12/2020 12:29
== END ==
PROVIDERS: PCP Family Medicine; Visit Provider Family Medicine
DX: M25.551 Pain in right hip (principal); M54.5 Low back pain; M25.562 Pain in left knee; W19.XXXA Unspecified fall, initial encounter; Y92.009 Unspecified place in unspecified non-institutional (private) residence as the place of occurrence of the external cause; M79.604 Pain in right leg
CPT/HCPCS: 73502; 73552; 73560; 73590

== ENCOUNTER → 2020-10-14 10:00 | Outpatient (CLI) | payer OTHER, SELFPAY | PROVIDERS: Visit Provider Obstetrics & Gynecology Gynecology | DX: Z01.818 Encounter for other preprocedural examination (principal); Z11.52 Encounter for screening for COVID-19 | CPT/HCPCS: U0003 ==

== ENCOUNTER → 2021-01-06 13:03 | Outpatient (CLI) | payer OTHER, SELFPAY | PROVIDERS: Visit Provider Family Medicine | DX: M79.604 Pain in right leg (principal); B96.1 Klebsiella pneumoniae [K. pneumoniae] as the cause of diseases classified elsewhere; B96.89 Other specified bacterial agents as the cause of diseases classified elsewhere | CPT/HCPCS: 87070; 87077; 87186; 87205 ==

== ENCOUNTER → 2021-02-04 15:10 | Outpatient (CLI) | payer OTHER, SELFPAY ==
[2021-02-04 16:48] LABS: C-Reactive Protein 5.8 mg/L (0-4)
[2021-02-04 18:31] LABS: Erythrocyte Sedimentation Rate 24 mm/hr (0-30)
== END ==
PROVIDERS: Visit Provider Family Medicine
DX: M25.561 Pain in right knee (principal)
CPT/HCPCS: 85651; 86140; 87070; 87077; 87205

== ENCOUNTER 2021-05-09 11:00 | Outpatient (RCR) | payer OTHER, SELFPAY | END 2021-05-09 11:05 | disposition home or self-care (01) | LOC: PT 11:00 | PROVIDERS: PCP Family Medicine; Visit Provider Family Medicine | DX: M25.561 Pain in right knee (principal); Z96.651 Presence of right artificial knee joint | CPT/HCPCS: 97110; 97140; 97163 ==

== ENCOUNTER → 2021-06-05 08:26 | Outpatient (CLI) | payer OTHER, SELFPAY ==
--- NOTE | 2021-06-05 08:26 | CT_ITS ---
PROCEDURE: CT ABDOMEN PELVIS WO CON CLINICAL INDICATION: LLQ pain suggestive of diverticulitis COMPARISON: CR XR FEMUR RT 2V from 08/12/2020 TECHNIQUE: Axial images obtained with sagittal and coronal reformats. All CT scans at the facility use one or more dose reduction, viz: automated exposure control, ma/kV adjustment per patient size (including targeted exams where dose is matched to indication, i.e. head), or iterative reconstruction technique. FINDINGS: LOWER THORAX: No acute finding ABDOMEN & PELVIS: Fatty liver. Prior cholecystectomy. Subtle low-dense area in the posterior aspect of the spleen at approximately 1 cm nonspecific. The adrenal glands and pancreas are unremarkable. No renal or ureteral calculi. No hydronephrosis. Prior appendectomy. No intestinal obstruction or free air. Mild amount of retained colonic feces. Prior hysterectomy. No evidence of diverticulitis. There is a lucency longitudinal in nature involving the proximal aspect of the femur on the right consistent with postsurgical changes. IMPRESSION: No acute finding. Subtle low-density in the posterior aspect of the spleen nonspecific. Follow-up exam in 3 months with hemangioma protocol may confirm short term stability. There are no old exams available at this institution for comparison. Dictated by: Jaylen Root MD 06/06/2021 08:37 Jaylen Root MD in [facility] 06/06/2021 08:37
== END ==
PROVIDERS: PCP Family Medicine; Visit Provider Family Medicine
DX: R10.32 Left lower quadrant pain (principal)
CPT/HCPCS: 74176

== ENCOUNTER 2021-08-04 10:00 | Outpatient (RCR) | payer MEDICAID, SELFPAY ==
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
== END 2021-08-04 10:05 | disposition home or self-care (01) ==
LOC: PT 10:00
PROVIDERS: Visit Provider Family Medicine
DX: M79.605 Pain in left leg (principal)
CPT/HCPCS: 97110; 97163

== ENCOUNTER 2021-10-03 20:13 | Emergency (ER) | payer OTHER, MEDICAID, SELFPAY ==
[2021-10-03 20:14] VITALS: BP 143/51; PULSE 104; RESP 20; TEMP 36.8; O2SAT 98; BMI 47.5
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
[2021-10-04 00:26] VITALS: BP 135/60; PULSE 90; RESP 17; TEMP 36.8; O2SAT 98
== END 2021-10-04 00:44 | disposition home or self-care (01) ==
PROVIDERS: Emergency Provider Emergency Medicine; PCP Family Medicine
DX: S40.011A Contusion of right shoulder, initial encounter (principal); S89.91XA Unspecified injury of right lower leg, initial encounter; T07.XXXA Unspecified multiple injuries, initial encounter; V43.62XA Car passenger injured in collision with other type car in traffic accident, initial encounter; Y92.414 Local residential or business street as the place of occurrence of the external cause
CPT/HCPCS: 71101; 73030; 73060; 73502; 73560; 73590; 73610; 73700; 99284

== ENCOUNTER → 2022-03-20 14:48 | Outpatient (CLI) | payer MEDICAID, SELFPAY ==
[2022-03-20 14:16] LABS: Basophils # 0.1 K/mm3 (0-0.2); Eosinophils # 0.2 K/mm3 (0.0-0.4); Eosinophils % 2.7 % (0.1-12.0); Hematocrit 35.9 % (37.0-47.0); Hemoglobin 11.9 g/dL (12.2-16.2); Lymphocytes # 1.6 K/mm3 (0.7-4.5); Lymphocytes % 23.4 % (10-50); Mean Corpuscular HGB Conc 33.1 g/dL (31.8-35.4); Mean Corpuscular Hemoglobin 28.9 pg (27.0-31.2); Mean Corpuscular Volume 87.3 fl (81-99); Mean Platelet Volume 9.6 fl (7.4-10.4); Monocytes # 0.4 K/mm3 (0.1-1.0); Monocytes % 5.7 % (1.7-9.3); Neutrophils # 4.7 K/mm3 (1.8-7.8); Neutrophils % 67.2 % (37.0-80.0); Platelet Count 377 K/mm3 (142-424); Red Blood Count 4.11 M/mm3 (4.20-5.40); Red Cell Distribution Width 15.7 % (11.5-17.5); White Blood Count 6.9 K/mm3 (4.8-10.8)
[2022-03-20 14:19] LABS: Alanine Aminotransferase 30 U/L (12-78); Albumin Level 4.2 g/dl (3.5-5.0); Albumin/Globulin Ratio 1.2 (1.1-1.8); Alkaline Phosphatase 146 U/L (38-126); Anion Gap 19.3 mEq/L (5-15); Aspartate Amino Transferase 34 U/L (14-36); Bilirubin,Total 0.7 mg/dl (0.2-1.3); Blood Urea Nitrogen 17 mg/dl (7-17); Calcium 9.1 mg/dl (8.4-10.2); Carbon Dioxide 21 mmol/L (22.0-30.0); Chloride 101 mmol/L (98-107); Chol/HDL Ratio 3.3 (1-3.5); Cholesterol 164 mg/dl (140-200); Estimated Glomerular Filt Rate 51 ml/min (>60); GFR (African American) 62 ML/MIN (>60); Globulin 3.4 g/dL (1.3-3.2); Glucose 112 mg/dl (74-100); HDL Cholesterol 49 mg/dl (40-60); Potassium 4.3 mmoL/L (3.5-5.1); Sodium 137 mmol/L (136-145); Total Protein,Serum 7.6 g/dl (6.3-8.2); Triglycerides 128 mg/dl (30-150); VLDL Cholesterol 26 mg/dL (0-40)
[2022-03-20 14:30] LABS: Direct LDL Cholesterol 79.42 mg/dL (100-129)
[2022-03-20 14:36] LABS: Free T4 (Free Thyroxine) 0.89 ng/dl (0.78-2.19)
[2022-03-20 14:40] LABS: 25-OH Vitamin D, Total < 12.8 ng/mL (30-100)
[2022-03-20 14:51] LABS: Thyroid Stimulating Hormone 2.89 uIU/mL (0.465-4.68)
== END ==
PROVIDERS: PCP Family Medicine; Visit Provider Family Medicine
DX: R53.83 Other fatigue (principal); E03.9 Hypothyroidism, unspecified; I10 Essential (primary) hypertension; E55.9 Vitamin D deficiency, unspecified; K59.00 Constipation, unspecified
CPT/HCPCS: 80053; 80061; 82306; 84439; 84443; 85025

== ENCOUNTER 2022-11-27 18:50 | Emergency (ER) | payer MEDICAID, SELFPAY ==
[2022-11-27 18:51] VITALS: BP 143/62; PULSE 91; RESP 19; TEMP 36.6; O2SAT 100; BMI 48.4
--- NOTE | 2022-11-27 18:58 | ECG_ITS ---
APPROVED REPORT Exam: Resting ECG HR:84 bpm ECG Measurements Heart Rate 84 AXES CO 198 P 37 QRSd 74 QRS 35 QT 353 T 47 QTc 394 Conclusion SINUS RHYTHM LOW QRS VOLTAGE IN PRECORDIAL LEADS [QRS DEFLECTION < 1.0 mV IN CHEST LEADS] BORDERLINE ECG UNCONFIRMED REPORT Electronically signed by : Madi Boyle MD 11/27/2022 21:25:39
--- NOTE | 2022-11-27 19:00 | CT_ITS ---
PROCEDURE INFORMATION: Exam: CTA Neck With Contrast Exam date and time: 11/27/2022 7:34 PM Age: 57 years old Clinical indication: Stroke-like symptoms; Dizziness/giddiness; Additional info: Dizziness, R/O stroke TECHNIQUE: Imaging protocol: Computed tomographic angiography of the neck with contrast. 3D rendering (Not supervised by radiologist): MIP and/or 3D reconstructed images were created by the technologist. Radiation optimization: All CT scans at this facility use at least one of these dose optimization techniques: automated exposure control; mA and/or kV adjustment per patient size (includes targeted exams where dose is matched to clinical indication); or iterative reconstruction. Contrast material: ISOVUE; Contrast volume: 100 ml; Contrast route: INTRAVENOUS (IV); REPORTING DATA: Count of CT and Cardiac NM exams in prior 12 months: This patient has received 0 known CTs and 0 known cardiac nuclear medicine studies in the 12 months prior to the current study. COMPARISON: CT HEAD/BRAIN WO CON 11/27/2022 7:32 PM FINDINGS: Right common carotid artery: No stenosis. No dissection or occlusion. Right internal carotid artery: No significant stenosis. No dissection or occlusion. Right external carotid artery: No occlusion or stenosis of the origin. Left common carotid artery: No stenosis. No dissection or occlusion. Left internal carotid artery: No significant stenosis. No dissection or occlusion. Left external carotid artery: No occlusion or stenosis of the origin. Right vertebral artery: No stenosis. No dissection or occlusion. Left vertebral artery: No stenosis. No dissection or occlusion. Soft tissues: Normal. No significant soft tissue swelling. Bones/joints: No acute fracture. IMPRESSION: Unremarkable examination with no significant stenosis, dissection, or occlusion. REFERENCES: NASCET CRITERIA. The degree of stenosis in the cervical segment of the internal carotid artery is based on NASCET criteria. Normal is no stenosis. Mild is less than 50% stenosis. Moderate is 50-69% stenosis. Severe is 70% to 99% stenosis. Total occlusion is no detectable patent lumen.
--- NOTE | 2022-11-27 19:00 | CT_ITS ---
PROCEDURE INFORMATION: Exam: CT Head Without Contrast Exam date and time: 11/27/2022 7:32 PM Age: 57 years old Clinical indication: Stroke-like symptoms; Dizziness/giddiness; Additional info: Dizziness, R/O stroke TECHNIQUE: Imaging protocol: Computed tomography of the head without contrast. Radiation optimization: All CT scans at this facility use at least one of these dose optimization techniques: automated exposure control; mA and/or kV adjustment per patient size (includes targeted exams where dose is matched to clinical indication); or iterative reconstruction. Other technique: STROKE PROTOCOL was implemented. REPORTING DATA: Count of CT and Cardiac NM exams in prior 12 months: This patient has received 0 known CTs and 0 known cardiac nuclear medicine studies in the 12 months prior to the current study. COMPARISON: No relevant prior studies available. FINDINGS: Brain: Decreased attenuation with possible edema of the bilateral internal capsule. The logno-white matter junction is intact. There is no mass or hemorrhage. Cerebral ventricles: No ventriculomegaly. Paranasal sinuses: Visualized sinuses are unremarkable. No fluid levels. Mastoid air cells: Visualized mastoid air cells are well aerated. Bones/joints: Unremarkable. No acute fracture. Soft tissues: Unremarkable. IMPRESSION: 1. Decreased attenuation with possible edema of the bilateral internal capsule. This is concerning but not definitive for an anoxic injury. 2. The remainder of the examination is unremarkable. There is no cortical infarction or hemorrhage. ASSESSMENT: ASPECTS ([place] Stroke Program Early CT Score) is 9.
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
[2022-11-27 19:15] LABS: Basophils % 0.4 % (0.1-2.0); Eosinophils # 0.3 K/mm3 (0.0-0.4); Eosinophils % 3.4 % (0.1-12.0); Hematocrit 36.2 % (37.0-47.0); Hemoglobin 11.8 g/dL (12.2-16.2); Lymphocytes # 2.3 K/mm3 (0.7-4.5); Mean Corpuscular HGB Conc 32.7 g/dL (31.8-35.4); Mean Corpuscular Hemoglobin 27.9 pg (27.0-31.2); Mean Corpuscular Volume 85.3 fl (81-99); Monocytes # 0.5 K/mm3 (0.1-1.0); Monocytes % 4.8 % (1.7-9.3); Neutrophils # 6.4 K/mm3 (1.8-7.8); Neutrophils % 67.3 % (37.0-80.0); Platelet Count 330 K/mm3 (142-424); Red Blood Count 4.24 M/mm3 (4.20-5.40); Red Cell Distribution Width 15.2 % (11.5-17.5); White Blood Count 9.5 K/mm3 (4.8-10.8)
[2022-11-27 19:16] VITALS: BP 97/67; PULSE 90; O2SAT 97
[2022-11-27 19:19] LABS: Chloride 99 mmol/L (98-107)
[2022-11-27 19:20] LABS: Potassium 4.6 mmoL/L (3.5-5.1); Sodium 133 mmol/L (136-145)
--- NOTE | 2022-11-27 19:21 | PC.NURSE ---
patient gone to RAD at this time.
[2022-11-27 19:22] LABS: Alanine Aminotransferase 46 U/L (12-78); Anion Gap 18.6 mEq/L (5-15); Aspartate Amino Transferase 48 U/L (14-36); Blood Urea Nitrogen 20 mg/dl (7-17); Carbon Dioxide 20 mmol/L (22.0-30.0); Creatinine Clearance Estimated 40 mL/min (50-200); Estimated Glomerular Filt Rate 46 ml/min (>60); GFR (African American) 56 ML/MIN (>60)
[2022-11-27 19:23] LABS: Albumin Level 4.5 g/dl (3.5-5.0); Albumin/Globulin Ratio 1.2 (1.1-1.8); Alkaline Phosphatase 78 U/L (38-126); Bilirubin,Total 0.5 mg/dl (0.2-1.3); Calcium 9.2 mg/dl (8.4-10.2); Globulin 3.7 g/dL (1.3-3.2); Glucose 112 mg/dl (74-100); Total Protein,Serum 8.2 g/dl (6.3-8.2)
[2022-11-27 19:35] LABS: Troponin I < 0.01 ng/ml (0.00-0.034)
--- NOTE | 2022-11-27 19:39 | PC.NURSE ---
patient back in room at this time.
[2022-11-27 19:52] VITALS: BP 151/76; PULSE 89; O2SAT 99
--- NOTE | 2022-11-27 19:56 | PC.NURSE ---
SPEAKING WITH ASHLEY
[2022-11-27 20:01] VITALS: BP 158/65; PULSE 86; O2SAT 98
[2022-11-27 20:01] LABS: Activated Partial Thrombo Time 24.7 seconds (22.8-30.6); INR 0.95 (0.9-1.1); Prothrombin Time 10.3 seconds (10.1-12.5)
[2022-11-27 20:17] LABS: Carboxyhemoglobin 1.5 (0.0-5.0)
[2022-11-27 20:31] VITALS: BP 144/75; PULSE 86; O2SAT 98
--- NOTE | 2022-11-27 20:44 | HMH.EDGENADL ---
Discharge Plan Disposition Patient Disposition: Home, Self-Care Condition: Good Prescriptions Prescriptions: No Action torsemide 20 mg tablet 20 mg PO DAILYP PRN (Reason: Edema) Label Comments: TAKE 1 TABLET BY MOUTH ONCE DAILY NEEDED FOR EDEMA cetirizine 10 mg tablet 10 mg PO DAILY Label Comments: TAKE ONE TABLET BY MOUTH DAILY hydrocodone-acetaminophen 5-325 mg tablet 1 tab PO DAILYP PRN (Reason: Chronic pain) Label Comments: TAKE 1 TABLET BY MOUTH ONCE DAILY NEEDED FOR SEVERE BREAKTHROUGH PAIN, NOT FOR DAILY USE 30 DAYS gabapentin 300 mg capsule 300 mg PO BID omeprazole 20 mg capsule,delayed release(DR/EC) 20 mg PO DAILY Label Comments: TAKE 1 CAPSULE ORALLY DAILY FOR STOMACH ergocalciferol (vitamin D2) 1,250 mcg (50,000 unit) capsule 1,250 mcg PO WEEKLY Label Comments: TAKE 1 CAPSULE BY MOUTH ONCE WEEKLY albuterol sulfate [Ventolin HFA] 90 mcg/actuation HFA aerosol inhaler 2 puff INHALATION Q6HP PRN (Reason: Breathing Problems) Label Comments: INHALE 2 PUFF INHALED EVERY 6 HOURS NEEDED FOR COPD diazepam 5 mg tablet 5 mg PO DAILY Label Comments: TAKE 1 TABLET BY MOUTH EVERY DAY FOR ANXIETY Linzess 145 mcg capsule 145 mcg PO DAILY Label Comments: TAKE 1 CAPSULE BY MOUTH EVERY DAY FOR STOMACH potassium chloride 20 mEq tablet extended release 20 meq PO DAILY Label Comments: TAKE 1 TABLET BY MOUTH EVERY DAY Referrals Follow up/Referrals: Felipe Urban MD [Primary Care Provider] - See instructions Clinical Impressions Clinical Impression: Dizziness Discharge ED Provider: Jonathan Contreras General Adult HPI General Chief complaint: Dizziness Stated complaint: WEAKNESS Time Seen by Provider: 11/27/22 19:00 Mode of Arrival: EMS Source of Information: Patient and EMS Limitations: No Limitations Description of Symptoms (Recalled from ER Triage Doc. by RN): 57 F presents via EMS from home for c/o low blood pressure and dizziness. Patient reports a bp with the top number in the 70's. EMS reports taking a forearm bp which was also systolic 70's; however, when they took it on her bicep she was 110/62. Patient arrives here NAD, VSS, a/o x3. Dizziness has continued. Nothing makes it worse or better. History of Present Illness HPI narrative: This is a 57-year-old female with history of obesity, hypertension, hyperlipidemia, chronic MSK pain presenting with dizziness. Patient states that she has been followed with her primary care physician for hypertension. She has had multiple episodes of dizziness over the past 3 to 4 days. She is generally upright when these episodes hit, but not necessarily exerting herself. She becomes dizzy, lightheaded, feels generally weak. She has been taking her blood pressure during his episodes and has noticed that her top number drops to 70 and bottom number drops to the 40s. Once symptoms improve, she takes her blood pressure and blood pressure has also improved, but symptoms last 20 to 30 minutes at a time. Denies falls, confusion, unilateral deficits, vision changes, chest pain, shortness of breath, nausea or vomiting, diaphoresis, abdominal pain, recent illness, recent medication changes, or any other concerns. Asymptomatic on arrival Related Data Home Medications Medication Instructions Recorded Confirmed albuterol sulfate 90 mcg/actuation 2 puff inhalation Q6HP PRN 11/27/22 11/27/22 aerosol inhaler (Ventolin HFA) Breathing Problems cetirizine 10 mg tablet 10 mg PO DAILY Allergy symptoms 11/27/22 11/27/22 diazepam 5 mg tablet 5 mg PO DAILY Anxiety 11/27/22 11/27/22 ergocalciferol (vitamin D2) 1,250 1,250 mcg PO WEEKLY Supplement 11/27/22 11/27/22 mcg (50,000 unit) capsule gabapentin 300 mg capsule 300 mg PO BID Chronic pain 11/27/22 11/27/22 hydrocodone 5 mg-acetaminophen 325 1 tab PO DAILYP PRN Chronic pain 11/27/22 11/27/22 mg tablet linaclotide 14
[2022-11-27 20:55] VITALS: BP 144/75; PULSE 86; RESP 20; TEMP 36.8; O2SAT 98
== END 2022-11-27 20:57 | disposition home or self-care (01) ==
PROVIDERS: Emergency Provider Emergency Medicine; PCP Family Medicine
DX: R42 Dizziness and giddiness (principal); E87.1 Hypo-osmolality and hyponatremia; I10 Essential (primary) hypertension; E78.5 Hyperlipidemia, unspecified; E66.01 Morbid (severe) obesity due to excess calories; Z68.42 Body mass index [BMI] 45.0-49.9, adult
CPT/HCPCS: 70450; 70496; 70498; 80053; 82375; 84484; 85025; 85610; 85730; 93005; 96360; 99285; Q9967

== ENCOUNTER 2023-10-14 12:55 | Outpatient (CLI) | payer MEDICAID, SELFPAY ==
[2023-10-14 19:14] LABS: Alanine Aminotransferase 26 U/L (12-78); Albumin Level 4.5 g/dl (3.5-5.0); Albumin/Globulin Ratio 1.4 (1.1-1.8); Alkaline Phosphatase 97 U/L (38-126); Anion Gap 17.4 mEq/L (5-15); Aspartate Amino Transferase 32 U/L (14-36); Bilirubin,Total 0.6 mg/dl (0.2-1.3); Blood Urea Nitrogen 23 mg/dl (7-17); Calcium 9.6 mg/dl (8.4-10.2); Carbon Dioxide 23 mmol/L (22.0-30.0); Chloride 104 mmol/L (98-107); Chol/HDL Ratio 3.1 (1-3.5); Cholesterol 170 mg/dl (140-200); Estimated Glomerular Filt Rate 42 ml/min (>60); GFR (African American) 51 ML/MIN (>60); Globulin 3.2 g/dL (1.3-3.2); Glucose 90 mg/dl (74-100); HDL Cholesterol 55 mg/dl (40-60); Potassium 4.4 mmoL/L (3.5-5.1); Sodium 140 mmol/L (136-145); Total Protein,Serum 7.7 g/dl (6.3-8.2); Triglycerides 208 mg/dl (30-150); VLDL Cholesterol 42 mg/dL (0-40)
[2023-10-14 19:25] LABS: Direct LDL Cholesterol 77.96 mg/dL (100-129)
[2023-10-14 19:47] LABS: Hemoglobin A1C 5.2 % (4.0-6.0)
== END 2023-10-14 23:59 | disposition home or self-care (01) ==
LOC: LAB.DROPOF 10-15 12:55
PROVIDERS: PCP Family Medicine; Visit Provider Family Medicine
DX: I10 Essential (primary) hypertension (principal); F41.9 Anxiety disorder, unspecified; Z79.899 Other long term (current) drug therapy
CPT/HCPCS: 80053; 80061; 83036

== ENCOUNTER 2024-06-21 13:19 | Outpatient (CLI) | payer MEDICARE, MEDICAID, SELFPAY ==
--- NOTE | 2024-06-21 13:30 | CT_ITS ---
FINAL REPORT TECHNIQUE: Thin section axial CT images with coronal and sagittal reformats were performed before and after the administration of IV contrast. This study was performed with techniques to keep radiation doses as low as reasonably achievable (ALARA). Individualized dose reduction techniques using automated exposure control or adjustment of mA and/or kV according to the patient's size were employed. CLINICAL HISTORY: cervical adenopathy COMPARISON: CTA of the neck 11/27/2022 FINDINGS: CT NECK SOFT TISSUE WITH AND WITHOUT CONTRAST: CT examination of the soft tissues of the neck was performed with both pre and post contrast-enhanced images. The salivary glands are unremarkable. No significant cervical adenopathy is noted. The largest lymph node demonstrated is in the upper left jugular region, best seen on axial image #37 of series 5. This node measures 12 x 7 mm in size, stable when compared to the prior CTA of 2022. Numerous other subcentimeter node are also stable. There is a right posterior triangle node sure is 9 x 5 mm in size, stable. The larynx is unremarkable. The thyroid gland is normal in appearance. IMPRESSION: Scattered normal-sized lymph nodes, stable in size and appearance since the prior CTA of 2022, without evidence of mass. Reviewed, Interpreted and Dictated by Heri Cortes MD Transcribed by Kimberly Last Authenticated and [facility]
[2024-06-21 13:49] LABS: Blood Urea Nitrogen 22 mg/dl (7-17); Estimated Glomerular Filt Rate 57 ml/min (>60); GFR (African American) 68 ML/MIN (>60)
[2024-06-21] MEDS: SODIUM CHLORIDE 0.9% 10ML SYR (RAD ONLY) 10 ML IV (14:28)
[2024-06-21] MEDS: IOPAMIDOL-370 (76%);100ML BOTTLE 75 ML IV (14:29)
== END 2024-06-21 23:59 | disposition home or self-care (01) ==
LOC: RAD 13:20
PROVIDERS: PCP Family Medicine; Visit Provider Family Medicine
DX: R59.0 Localized enlarged lymph nodes (principal)
CPT/HCPCS: 36415; 70492; 82565; 84520; Q9967

== ENCOUNTER 2024-12-25 10:40 | Outpatient (CLI) | payer MEDICARE, MEDICAID, SELFPAY ==
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
--- OUTSIDE RECORDS SUMMARY | 2024-12-25 10:44 | XMS_ITS | Clinical Summary ---
Author Organization [facility] Address [address] [place] [address] Phone Care Team Providers Care Operations Research Scientist Name Role Phone Unavailable Primary Care Provider Unavailabl e Allergies Active Allergy Reactions Criticality Noted Date Comments Ibuprofen Nausea And Vomiting 05/07/2016 Medications estrogens, conjugated, (PREMARIN) 0.625 mg tablet Take by mouth daily. Active albuterol (VENTOLIN HFA) 90 mcg/actuation Inhl HFA Aerosol InhalerIndication s:Mild intermittent asthma with acute exacerbation Inhale 2 Puffs into the lungs every 6 hours as needed. 1 Inhaler 5 6 Active busPIRone (BUSPAR) 15 mg Oral TabletIndications :OLIVIA (generalized anxiety disorder),Panic attack Take 1 Tab by mouth 2 times daily. 60 Tab 2 7 Active PARoxetine (PAXIL) 10 mg Oral TabletIndications :OLIVIA (generalized anxiety disorder),Panic attack Take 2 Tabs by mouth daily. 60 Tab 2 7 Active fluticasone (FLOVENT) 220 mcg/actuation Inhl HFA Aerosol Inhaler Inhale 2 Puffs into the lungs 2 times daily. 1 Inhaler 2 7 Active omeprazole (PRILOSEC) 20 mg Oral Capsule, Delayed Release(E.C.)Madalyn cations:Hiatal hernia TAKE ONE CAPSULE BY MOUTH EVERY DAY 30 Cap 5 7 Active Active Problems Patient Care Coordination No te Formatting of this note migh t be different from the original. Niall 12/12/12 Problem Noted Date Diagnosed Date Hyperlipidemia with target LDL less than 130 Obesity, Class II, BMI 35-39.9 07/14/2016 DDD (degenerative disc disease), lumbar 06/21/19 17 History of colon polyps 06/21/2016 Overview (06/21/2016): 08/03/14 Benign colonic specimen from [facility] Hiatal hernia 05/07/2016 OLIVIA (generalized anxiety disorder) 12/12/2012 Panic attack 12/12/2012 Asthma GERD (gastroesophageal reflux disease) Resolved Problems Problem Noted Date Diagnosed Date Resolved Date Anxiety 12/12/2012 Surgical History Surgery Date Site/Laterality Comments HYSTERECTOMY 06/07/1998 - 06/06/1999 fibroid tumor Medical History Medical History Date Comments Asthma Hiatal hernia Anxiety Family History Medical History Relation Name Comments Hypertension Father Hypertension Mother Hypertension Sister has four sister s Relation Name Status Comments Father Alive Mother Alive Sister Alive Social History Tobacco Use Types Packs/Day Years Used Date Smoking Tobacco: Never Smokeless Tobacco: Never Tobacco Cessation:Counseling Given: No Alcohol Use Standard Drinks/Week Comments No 0 (1 standard drink = 0.6 oz pur e alcohol) Sexually Active Control Partners Comments Never Comments No Sex and Gender Information Value Date Recorded Sex Assigned at Not on file Legal Sex Female 9:01 AM EDT Gender Identity Not on file Sexual Orientation Not on file 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 Not on file Not on file Not on file Obstetrics History Last Filed Vital Signs Vital Sign Reading Time Taken Comments Blood Pressure 128/82 10/06/2016 8:04 AM EDT Pulse 63 10/06/2016 8:04 AM EDT Temperature 36.8 C (98.2 F) 10/06/2016 8:04 AM EDT Respiratory Rate 16 10/06/2016 8:04 AM EDT Oxygen Saturation 97% 10/06/2016 8:04 AM EDT Inhaled Oxygen Concentration - - Weight 100.5 kg (221 lb 9.6 oz) 10/06/2016 8:04 AM EDT Height 157.5 cm (5' 2 ) 09/22/2016 8:18 AM EDT Body Mass Index 40.53 09/22/2016 8:18 AM EDT Plan of Treatment Health Maintenance Due Date Last Done Comments Hepatitis C Screening 1982 DTaP/TDaP/Td (1 - Tdap) 1983 Pneumococcal Vaccine 50+ (1 of 2 - PCV) 1983 Cervical Cancer Screening 1985 Pap Smear 1985 HPV/Pap Cotest 1994 Cologuard 2009 FIT 2009 Sigmoidoscopy 2009 Virtual Colonography 2009 Zoster (1 of 2) 2014 Annual Wellness Exam 05/07/2017 05/07/2016 Breast Cancer Screening 12/24/2017 12/25/19 16, 09/06/2015 COVID-19 Vaccine (1 - 2023-2 5 season) 2024 RSV or 60+ (1 - Ris k 60-74 years 1-dose series) 2024 Influenza Vaccine (#1) 2025 Colon Cancer Screening 03/18/2026 Colonoscopy 03/18/2026 03/18/2016, 03/18/2016, 03/09/2016 Hepatitis B Vaccine Aged Out No longe r eligible based on patient's age to complete this topic Meningococcal B Vaccine Aged Out No l onger eligible based on patient's age to complete this topic Goals Goal Patient Goal Type Associated Problems Recent Progress Patient-Stated? Author Maintain a healthy diet, exercise regularly and maintain an ideal body weight General No Traci Bush, HUGO Procedures Procedure Name Priority Date/Time Associated Diagnosis Comments COLONOSCOPY Routine 03/18/2016 MAMMOGRAPHY Routine 12/25/2015 from Last 3 Months or Most Recently Relevant to Health Maintenance Results * COLONOSCOPY (03/18/2016) Historical Provider HEALTH MAINTENANCE Final Res ult SEP OFFICE * MAMMOGRAPHY (12/25/2015) Impressions SEP OFFICE - 12/25/2015 Benign [facility] Provider HEALTH MAINTENANCE Final Res ult SEP OFFICE from Last 3 Months or Most Recently Relevant to Health Maintenance Insurance [employer] [place] [address] [address] [place] [facility] [employer] [place]
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
--- OUTSIDE RECORDS SUMMARY | 2024-12-25 10:44 | XMS_ITS | Clinical Summary ---
Author Organization [facility] Address [address] [place] [address] Care Team Providers [employer] Driver Name Role Phone System, Provider Not In MD Primary Care Provider Unavailable Allergies Active Allergy Reactions Criticality Noted Date Comments Codeine Other - please document in the comment field Low 12/19/2019 nausea and vomiting Ibuprofen Hives,Unknown - Patient states they do not know rxn details Medium 11/01/2017 Acetaminophen-Codeine Unknown - Patient states they do not know rxn details Low 11/29/2017 Nausea and vomiting Medications traMADol (Ultram) 50 MG tablet TAKE 1 TABLET 3 TIMES DAILY NEEDED. 11/06/2020 Active sucralfate (Carafate) 1 g tablet 12/16/2017 Active simvastatin (Zocor) 20 MG tablet 06/10/2017 Active oxyCODONE-acetam inophen (Percocet) 5-325 MG tablet TAKE 1 TABLET 1/2 HOUR PRIOR TO PROCEDURE; THEN 1 TABLET EVERY 4 TO 6 HOURS NEEDED TO PAIN. 01/04/2020 Active omeprazole (PriLOSEC) [address] capsule 06/25/2017 Active gabapentin (Neurontin) 800 MG tablet 07/26/2017 Active FLUoxetine (PROzac) 20 MG capsule 07/26/2017 Active diazePAM (Valium) 5 MG tablet 06/10/2017 Active citalopram (CeleXA) 20 MG tablet 12/06/2017 Active cetirizine (ZyrTEC) 10 MG tablet 12/16/2017 Active albuterol (Ventolin HFA) 108 (90 Base) MCG/ACT inhaler 07/26/2017 Act chano Active Problems Problem Noted Date Diagnosed Date Asthma 02/13/2021 GERD (gastroesophageal reflux disease) S/P total knee arthroplasty 11/06/2020 Encounter for long-term (current) use of insulin 06/01/2018 Tibial plateau fracture 11/29/2017 Hyperlipidemia with target LDL less than 130 Obesity, Class II, BMI 35-39.9 07/14/2016 DDD (degenerative disc disease), lumbar 06/21/19 17 Hiatal hernia 05/07/2016 OLIVIA (generalized anxiety disorder) 12/12/2012 Panic attack 12/12/2012 Immunizations Immunization Administration Dates Next Due Tdap 08/12/2018 Social History Tobacco Use Types Packs/Day Years Used Date Smoking Tobacco: Former Smokeless Tobacco: Never Alcohol Use Standard Drinks/Week Comments Never 0 (1 standard drink = 0.6 oz pur e alcohol) Comments Unknown Sex and Gender Information Value Date Recorded Sex Assigned at Not on file Legal Sex Female 8:39 PM EDT Gender Identity Not on file Sexual Orientation Not on file Last Filed Vital Signs Vital Sign Reading Time Taken Comments Blood Pressure 90/53 02/14/2021 8:04 PM EDT Pulse 71 02/14/2021 8:04 PM EDT Temperature 36.4 C (97.5 F) 02/14/2021 8:04 PM EDT Respiratory Rate 18 02/13/2021 3:32 PM EDT Oxygen Saturation 98% 02/14/2021 8:04 PM EDT Inhaled Oxygen Concentration - - Weight 120 kg (264 lb) 02/13/2021 4:15 PM EDT Height 157.5 cm (5' 2 ) 02/13/2021 4:15 PM EDT Body Mass Index 48.29 02/13/2021 4:15 PM EDT Plan of Treatment Health Maintenance Due Date Last Done Comments [facility]-Depression Screening 1964 [facility]-Infant/Child/Adol SDOH Screenings 1964 [facility]- SDOH Screenings 1982 [facility]-Adult SDOH Screenings 1982 [facility]-Pap Smear 1985 [facility]-Cervical Cancer Screening 1994 [facility]-HPV/Cotest 1994 CT Colonography 2009 Colonoscopy 2009 FIT-DNA 2009 FIT 2009 FOBT 2009 Sigmoidoscopy 2009 [facility]-Colorectal Cancer Screening 2009 [facility]-Pneumococcal Vaccine: 50 + Years (1 of 1 - PCV) 2014 [facility]-Zoster Vaccines (1 of 2) 2014 [facility]-OAHSQ-07 Vaccine (1 - 20 24-25 season) 2024 [facility]-Influenza Vaccine (#1) 2025 [facility]-DTaP,Tdap,and Td Vaccine s (2 - Td or Tdap) 08/12/2028 08/12/2018 [facility]-RSV Vaccine: 60+ Years o r (1 - 1-dose 75+ series) 2039 HPV Vaccines Aged Out No longer eligi ble based on patient's age to complete this topic [facility]-HIB Vaccines Aged Out No longer e ligible based on patient's age to complete this topic [facility]-Hepatitis A Vaccines Aged Out No longer eligible based on patient's age to complete this topic [facility]-IPV Vaccines Aged Out No longer e ligible based on patient's age to complete this topic [facility]-Rotavirus Vaccines Aged Out No lo nger eligible based on patient's age to complete this topic Insurance [employer] [facility] MEDICAID Care Teams Service [employer] Driver Relationship Specialty Start Date End Date System, Provider Not In, PCP - General 02/14/21
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
== END 2024-12-25 23:59 | disposition home or self-care (01) ==
LOC: RT 10:40
PROVIDERS: PCP Family Medicine; Visit Provider Family Medicine
DX: M79.671 Pain in right foot (principal); R60.0 Localized edema; R59.9 Enlarged lymph nodes, unspecified
CPT/HCPCS: 93923

== ENCOUNTER 2025-02-12 19:12 | Emergency (ER) | payer MEDICARE, MEDICAID, SELFPAY ==
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
[2025-02-12 19:07] VITALS: BP 156/85; PULSE 83; RESP 15; TEMP 36.7; O2SAT 99; BMI 47.5
--- NOTE | 2025-02-12 19:15 | ED_ITS ---
Discharge Plan Disposition Patient Disposition: Home, Self-Care Condition: Good Prescriptions Prescriptions: No Action citalopram [Celexa] 20 mg tablet 20 mg PO DAILY Qty: 90 3RF hydralazine 50 mg tablet 50 mg PO TID Qty: 90 3RF hydrocodone-acetaminophen 7.5-325 mg tablet 1 tab PO DAILY Patient Comments: TAKE 1 TABLET BY MOUTH ONCE DAILY NEEDED FOR SEVERE BREAKTHROUGH PAIN FOR 30 DAYS hydrocodone-acetaminophen 7.5-325 mg tablet 1 tab PO DAILY PRN (Reason: pain) Qty: 30 0RF furosemide [Lasix] 20 mg tablet 20 mg PO DAILY Qty: 30 0RF omeprazole 20 mg capsule,delayed release(DR/EC) 20 mg PO DAILY Qty: 90 3RF hydroxyzine HCl 50 mg tablet 50 mg PO Q8H PRN (Reason: anxiety) Qty: 90 5RF cetirizine 10 mg tablet 10 mg PO DAILY Qty: 90 2RF aspirin 81 mg tablet,delayed release (DR/EC) 81 mg PO DAILY Qty: 100 3RF losartan 100 mg tablet 100 mg PO DAILY Qty: 90 3RF gabapentin 600 mg tablet 600 mg PO TID Qty: 90 0RF simvastatin 20 mg tablet 20 mg PO DAILY Qty: 90 2RF ergocalciferol (vitamin D2) 1,250 mcg (50,000 unit) capsule 1,250 mcg PO WEEKLY Qty: 7 12RF buspirone 15 mg tablet 15 mg PO TID PRN (Reason: anxiety) Qty: 90 3RF potassium chloride 20 mEq tablet,ER particles/crystals 20 meq PO DAILY Qty: 30 2RF Patient Comments: TAKE 1 TABLET BY MOUTH EVERY DAY potassium chloride 20 mEq tablet extended release 20 meq PO DAILY Qty: 30 2RF Referrals Follow up/Referrals: Provider,Referral, MD [Primary Care Provider, Medical] - See instructions Activity Restrictions/Add. Instructions Additional Instructions/Restrictions: Take tylenol and Motrin as needed for pain control. Clinical Impressions Clinical Impression: Acute shoulder pain, Acute hip pain Print Language Print Language: Tamazight Discharge ED Provider: Ira Vicente Adult HPI General Chief complaint: Fall Stated complaint: fall from standing position Time Seen by Provider: 02/12/25 19:14 Mode of Arrival: EMS Source of Information: EMS Description of Symptoms (Recalled from ER Triage Doc. by RN): patient states she fell after getting out of her wheelchair tripped over door facing. avila arie in her right shoulder down right arm and whole right leg. 12/14 pain. denies LOC denies hitting head. takes 81mg of aspirin daily History of Present Illness HPI narrative: Patient is a 59-year-old female who had a ground-level fall. Patient states that she hit her right shoulder and her right lower extremity. Patient did not hit her head, did not have any loss of consciousness. Patient does take a daily baby aspirin. Patient states that she typically ambulates in a wheelchair but can get up and intermittently ambulate on her legs. Patient states that she tripped and fell onto her right side. Patient is having pain in her right shoulder and her entire right lower extremity. Patient did not have any chest pain lightheadedness or other associated symptoms prior to the fall. Patient has not had any abdominal pain nausea vomiting diarrhea. Has no cardiac history. Related Data Home Medications ?Medication ?Instructions ?Recorded ?Confirmed hydrocodone 7.5 mg-acetaminophen 1 tab PO DAILY 01/26/25 325 mg tablet Previous Rx's ?Medication ?Instructions ?Recorded citalopram 20 mg tablet (Celexa) 20 mg PO DAILY #90 ta bs 06/09/24 hydralazine 50 mg tablet 50 mg PO TID #90 tabs omeprazole 20 mg capsule,delayed 20 mg PO DAILY Acid r eflux #90 caps 09/11/24 release cetirizine 10 mg tablet 10 mg PO DAILY Allergy sympt oms 11/01/24 #90 tabs hydroxyzine HCl 50 mg tablet 50 mg PO Q8H PRN anxiety #90 tabs 11/01/24 aspirin 81 mg tablet,delayed 81 mg PO DAILY #100 tabs 11/27/24 release losartan 100 mg tablet 100 mg PO DAILY #90 tabs hydrocodone 7.5 mg-acetaminophen 1 tab PO DAILY PRN pa in #30 tabs 12/14/24 325 mg tablet gabapentin 600 mg tablet 600 mg PO TID #90 tabs 12/29 simvastatin 20 mg tablet 20 mg PO DAILY #90 tabs 12/06 01/29 furosemide 20 mg tablet (Lasix) 20 mg PO DAILY #30 tab s 01/26/25 buspirone 15 mg tablet 15 mg PO TID PRN anxiety #90 tabs 02/01/25 ergocalciferol (vitamin D2) 1,250 1,250 mcg PO WEEKLY Supplement #7 02/01/25 mcg (50,000 unit) capsule caps potassium chloride 20 mEq 20 meq PO DAILY #30 tabs 08/01 tablet,extended release(part/cryst) potassium chloride 20 mEq 20 meq PO DAILY Supplement # 30 tabs 02/07/25 tablet,extended release Allergies Allergy/AdvReac Type Severity Reaction Status Date / Time codeine (CODEINE) Allergy Unknown CHEST PAIN Verified 01/26/25 09:40 ibuprofen (IBUPROFEN) Allergy Unknown CHEST Verified 01/26/25 09:40 PAIN, STOMACH PAIN PFSH PFS Disclaimer: The information contained in this section may have been updated after the patient was seen, as this information can be updated by other users. Medical History Swollen lymph nodes Medication management Rash Anxiety Surgical History History of surgery on lower extremity History of surgery on arm Family History Other Hypertension Social History (Updated 01/26/25 @ 09:41 by Jessica French MA) Smoking Status: Former smoker alcohol intake: never substance use type: denies use current occupational status: unemployed and disabled Travel in the last 8 weeks?: None Have you lived/traveled outside US in past 30 days?: No Contact w/someone who lives/traveled outside US past 30 days?: No Exposure to someone with infectious disease in past 14 days?: No Do you have a fever (greater than 100.4 F or 38 C)?: No Have you tested positive for COVID-19?: No Exposed to someone with COVID-19 in past 14 days?: No Do you have a sore throat?: No Do you have a cough?: No Do you have any weakness?: No Do you have any diarrhea?: No Are you experiencing any unusual bleeding?: No Do you have any muscle aches/pain?: No Do you have any abdominal pain?: No Are you experiencing loss of taste or smell?: No Other Medical History Have you received the Flu Vaccine for this season: No Have you received the Pneumonia Vaccine: No ROS Obtained: Yes All systems reviewed & no additional complaints except as documented and Yes Systems reviewed as appropriate & no additional complaints except as documented Physical Exam General General appearance: alert and in no apparent distress Head Head exam: atraumatic, normocephalic and normal inspection Eye Eye exam: Present normal appearance, PERRL and EOMI; Absent scleral icterus ENT ENT exam: Present normal exam and normal external ear exam Neck Neck exam: Present normal inspection and full ROM Chest Chest inspection: Present normal inspection and symmetric chest wall rise Respiratory Respiratory exam: Present normal lung sounds bilaterally; Absent respiratory distress or wheezes Cardiovascular Cardiovascular exam: Present regular rate, normal rhythm and normal heart sounds Abdominal Exam Abdominal exam: Present soft and distention; Absent tenderness, guarding or rebound Extremities Exam Extremities exam: Present normal inspection, full ROM and other (R shoulder tenderness, but no obvious deformity. R hip and RLE tenderness but no obvious deformity.) Back Exam Back exam: Present normal inspection and full ROM Neurological Exam Neurological exam: Present alert, oriented X3 and other (NVI in the RLE, sensation intact) Psychiatric Psychiatric exam: Present normal affect and normal mood Skin Skin exam: Present warm and dry Medical Decision Making Medical Records Medical records reviewed: Yes I reviewed the patient's medical records. Screening: Per USPSTF and CDC recommendations, given the prevalence of disease in our region, it is our hospital?s policy to screen for HIV and viral Hepatitis for all patients aged 18 and over and those with ongoing risk factors. Niall Inquiry Pt receiving controlled substance: No Vital Signs: 02/12/25 19:07 02/12/25 21:11 Temperature 98.1 F Temperature Source Oral Pulse Rate 74 Pulse Rate [Right Radial] 83 Respiratory Rate 15 16 Blood Pressure 127/57 L Blood Pressure [Right Arm] 156/85 H Blood Pressure Mean [Right Arm] 108 Blood Pressure Source [Right Arm] Automatic Cuff Blood Pressure Position Sitting Blood Pressure Position [Right Arm] Supine 02 Sat by Pulse Oximetry 99 98 Oxygen Delivery Method Room Air Room Air Lab Data Lab results reviewed: Yes I reviewed the patient's lab results. Orders (Tests/Meds): ED MEDICATIONS Discontinued Medications Generic Name Dose Route Start Last Admin Trade Name Freq PRN Reason Stop Dose Admin Acetaminophen 1,000 mg 02/12/25 19:27 02/12/25 19:36 Acetaminophen 500mg Tab PO 02/12/25 19:28 1,000 mg ONCE ONE Administration Ibuprofen 800 mg 02/12/25 19:28 02/12/25 19:37 Ibuprofen 800 Mg Tablet PO 02/12/25 19:29 Not Given ONCE ONE ORDERS Category Date Time Status Femur XR right 2 views [XR femur RT 2V] Stat Exams 02/12/25 19:25 Completed Fibula/tibia XR right 2 views [XR tibia fibula RT 2V] Exams 02/12/25 19:25 Completed Stat Knee XR right 3 views [XR knee RT 3V] Stat Exams 02/12/25 19:25 Completed Pelvis XR 1-2 views [XR pelvis 1-2V] Stat Exams 02/12/25 19:25 Completed Shoulder XR right miminum 2 views [XR shoulder RT min Exams 02/12/25 19:25 Completed 2V] Stat Medical Decision Narrative: Patient is a 59-year-old female with multiple prior orthopedic surgeries who presents to the emergency department after ground-level fall. On arrival, patient was hemodynamically stable with unremarkable vital signs. Differential includes but not limited to: Fracture, dislocation, sprain, strain, amongst others. Patient did not hit her head, did not lose consciousness therefore low concern for intracranial pathology therefore CT scanning of the head was not obtained and patient had no cervical spine tenderness therefore CT of the cervical spine was not obtained as patient was Nexus negative. Patient had right shoulder tenderness as well as tenderness of the entire right lower extremity but there was no obvious deformity. Patient was otherwise neurovascularly intact. XR's were obtained of the right shoulder and the right lower extremity. [facility] Patient's x-rays were reviewed and interpreted by myself and showed no acute fractures per radiology there is no acute findings. At this time, patient was stable and appropriate for discharge. Patient was recommended to take Tylenol Motrin at home for symptomatic management. Patient was discharged home in stable condition. Critical Care Critical Care Time Critical Care Time: No
--- OUTSIDE RECORDS SUMMARY | 2025-02-12 19:17 | XMS_ITS | Clinical Summary ---
Author Organization [facility] Address [address] [place] [address] Care Team Providers Care Electorate Officer Name Role Phone System, Provider Not In [...] 02/13/2021 4:15 PM EDT Plan of Treatment Upcoming Encounters Date Type Department Care Team (Late st Contact Info) Description 03/29/2025 2:45 PM EDT Appointment [facility] [address] [address] Health Maintenance Due Date Last Done Comments [facility]-Depression Screening 1964 [facility]-/Child/Adol SDOH Screenings 1964 [facility]- SDOH Screenings 1982 [facility]-Adult SDOH Screenings 1982 [facility]-Pneumococcal Vaccine: 50+ Years (1 of 2 - PCV) 1983 [facility]-Pap Smear 1985 [facility]-Cervical Cancer Screening 1994 [facility]-HPV/Cotest 1994 CT Colonography 2009 Colonoscopy 2009 FIT-DNA 2009 FIT 2009 FOBT 2009 Sigmoidoscopy 2009 [facility]-Colorectal Cancer Screening 2009 [facility]-Breast Cancer Screening 2014 [facility]-Zoster Vaccines (1 of 2) 2014 [facility]-RSV Vaccine: 60+ Years or (1 - Risk 60-74 years 1-dose series) 2024 [id number] Vaccine (3 - 2024- season) 2025 03/24/2021, 03/03/2021 [facility]-Influenza Vaccine (#1) 2025 [facility]-DTaP,Tdap,and Td Vaccines (6 - Td or Tdap) 08/12/2028 08/12/2018, 01/21/1972, 12/17/1969, Additional history exists [facility]-IPV Vaccines Aged Out 06/22/1979, , 01/20/1979, Additional history exists No longer eligible based on patient's age to complete this topic [facility]-HIV Screening Completed 02/13/2021, 08/11/2018 [facility]-Hepatitis C Screening Completed 02/13/2021, 12/2018 HPV Vaccines Aged Out No longer eligi [...] on patient's age to complete this topic Procedures Procedure Name Priority Date/Time Associated Diagnosis Comments HEPATITIS C ANTIBODY - ED W/REFLEX TO HCV QUANT PCR STAT 02/13/2021 4:07 PM EDT HIV 1/2 ANTIBODY/ANTIGEN SCREEN WITH REFLEX TO HIV I/II DIFFERENTIATION STAT 02/13/2021 4:07 PM EDT from Last 3 Months or Most Recently Relevant to Health Maintenance Results * HIV 1 & 2 Antibody/Antigen Screen (02/13/2021 4:07 PM EDT) Pathologist [facility] HIV 1 & 2 Antibody/Anti gen Screen Nonreactive Nonreactive 02/13/2021 5:13 PM EDT HEALTHCARE LAB Blood Venous blood specimen / Unknown Venipuncture / Unknown 02/13/2021 4:07 PM EDT 02/13/2021 4:20 PM EDT Wisam Juan MD LAB BLOOD ORDERABLES Final Res ult [facility] [address] [place] [address] * Odd Hepatitis C Antibody (02/13/2021 4:07 PM EDT) Pathologist [facility] Hepatitis C Antibody Negative Negative 02/13/2021 5:13 PM EDT HEALTHCARE LAB Blood Venous blood specimen / Unknown Venipuncture / Unknown 02/13/2021 4:07 PM EDT 02/13/2021 4:20 PM EDT Wisam Juan MD LAB BLOOD ORDERABLES Final Res ult [facility] [address] [place] [address] from Last 3 Months or Most Recently Relevant to Health Maintenance Insurance [employer] [facility] [employer] Care Teams Electorate Officer Relationship Specialty Start Date End Date System, Provider Not In, PCP - General 02/14/21
--- OUTSIDE RECORDS SUMMARY | 2025-02-12 19:17 | XMS_ITS | Clinical Summary ---
Author Organization [facility] Address [address] [place] [address] Phone Care Team Providers Care Reconciliation Analyst Name Role Phone Unavailable Primary Care Provider [...] Overview (06/21/2016): 08/03/14 Benign [facility] specimen [facility] Hiatal hernia 05/07/2016 OLIVIA (generalized anxiety disorder) [...] Breast Cancer Screening 12/24/2017 12/25/19 16, 09/06/2015 RSV or 60+ (1 - Ris k 60-74 years 1-dose series) 2024 COVID-19 Vaccine (1 - 2023-2 5 season) 2025 Influenza Vaccine (#1) 2025 Colon Cancer Screening [...] ideal body weight General No Traci Bush, VISHALA Procedures Procedure Name Priority Date/Time Associated Diagnosis Comments COLONOSCOPY Routine 03/18/2016 MAMMOGRAPHY Routine 12/25/2015 from Last 3 Months or Most Recently Relevant to Health Maintenance Results * COLONOSCOPY (03/18/2016) Historical Provider HEALTH MAINTENANCE Final Res ult SEP OFFICE * MAMMOGRAPHY (12/25/2015) Impressions SEP OFFICE - 12/25/2015 Benign [facility] Provider HEALTH MAINTENANCE Final Res ult SEP OFFICE from Last 3 Months or Most Recently Relevant to Health Maintenance Insurance [employer] [place] [place] [address] [address] [place] [id number] [employer] [place]
--- NOTE | 2025-02-12 19:25 | XR_ITS ---
PROCEDURE INFORMATION: Exam: XR Pelvis Exam date and time: 02/12/2025 7:42 PM Age: 59 years old Clinical indication: Injury or trauma; Fall; Other: Tenderness; Additional info: Fall onto hip with tenderness TECHNIQUE: Imaging protocol: Radiologic exam of the pelvis. Views: 1 or 2 view. COMPARISON: CR XR HIP RT 2-3V W/PELVIS 10/03/2021 10:15 PM FINDINGS: Bones/joints: Unremarkable. No acute fracture. Soft tissues: Unremarkable. IMPRESSION: No acute findings.
--- NOTE | 2025-02-12 19:25 | XR_ITS ---
PROCEDURE INFORMATION: Exam: XR Right Shoulder Exam date and time: 02/12/2025 7:42 PM Age: 59 years old Clinical indication: Injury or trauma; Fall; Other: Tenderness; Additional info: Fall, tenderness TECHNIQUE: Imaging protocol: Radiologic exam of the right shoulder. Views: 2 or more views. COMPARISON: CR XR SHOULDER RT MIN 2V 10/03/2021 10:06 PM FINDINGS: Bones/joints: Normal. Soft tissues: Normal. IMPRESSION: No acute findings.
--- NOTE | 2025-02-12 19:25 | XR_ITS ---
PROCEDURE INFORMATION: Exam: XR Right Femur Exam date and time: 02/12/2025 7:42 PM Age: 59 years old Clinical indication: Injury or trauma; Fall; Other: Tenderness; Additional info: Tenderness after fall TECHNIQUE: Imaging protocol: Radiologic exam of the right femur. Views: 2 views. COMPARISON: CR XR FEMUR RT 2V 08/12/2020 11:21 AM FINDINGS: Tubes, catheters and devices: The visualized hardware appears intact. Bones/joints: Right distal femoral stem prosthesis partially visualized from prior right knee arthroplasty. No acute fracture. Soft tissues: Unremarkable. IMPRESSION: No evidence for acute fracture.
--- NOTE | 2025-02-12 19:25 | XR_ITS ---
PROCEDURE INFORMATION: Exam: XR Right Tibia and Fibula Exam date and time: 02/12/2025 7:42 PM Age: 59 years old Clinical indication: Injury or trauma; Fall; Other: Tenderness; Additional info: Fall from standing TECHNIQUE: Imaging protocol: Radiologic exam of the right tibia and fibula. Views: 2 views. COMPARISON: CR XR TIBIA FIBULA RT 2V 10/03/2021 10:20 PM FINDINGS: Tubes, catheters and devices: Hardware appears intact. Bones/joints: Postoperative changes from right knee arthroplasty identified. No acute fractures. Soft tissues: Normal. IMPRESSION: No acute findings.
--- NOTE | 2025-02-12 19:25 | XR_ITS ---
PROCEDURE INFORMATION: Exam: XR Right Knee Exam date and time: 02/12/2025 7:42 PM Age: 59 years old Clinical indication: Injury or trauma; Fall; Other: Tenderness; Additional info: Tenderness S/P fall TECHNIQUE: Imaging protocol: Radiologic exam of the right knee. Views: 3 views. COMPARISON: CR XR KNEE RT 2V 10/03/2021 10:19 PM FINDINGS: Tubes, catheters and devices: Hardware appears intact. Bones/joints: Postoperative changes from right knee arthroplasty. No acute fracture. Soft tissues: Normal. IMPRESSION: No evidence for acute fracture.
[2025-02-12] MEDS: ACETAMINOPHEN 500MG TAB 1000 MG PO (19:36)
[2025-02-12 21:11] VITALS: BP 127/57; PULSE 74; RESP 16; O2SAT 98
[2025-02-12 21:31] VITALS: BP 136/62; PULSE 69; RESP 18; TEMP 36.7; O2SAT 97
== END 2025-02-12 21:32 | disposition home or self-care (01) ==
PROVIDERS: Emergency Provider Student in an Organized Health Care Education/Training Program
DX: M25.511 Pain in right shoulder (principal); M25.551 Pain in right hip; W01.10XA Fall on same level from slipping, tripping and stumbling with subsequent striking against unspecified object, initial encounter
CPT/HCPCS: 72170; 73030; 73552; 73562; 73590; 99284

== ENCOUNTER 2025-05-11 11:15 | Outpatient (CLI) | payer MEDICARE, MEDICAID, SELFPAY ==
--- NOTE | 2025-05-11 11:00 | US_ITS ---
FINAL REPORT CLINICAL HISTORY: monitor swollen lymph nodes for growth / PALPABLE LYMOH NODE COMPARISON: CT of the neck, 06/21/2024. FINDINGS: ULTRASOUND SOFT TISSUE NECK: There are several benign-appearing nodes in the soft tissues of the neck seen bilaterally. The largest on the right measures 13 mm in size. The largest on the left measures 15 mm in size. Favor reactive, recommend clinical correlation. IMPRESSION: Benign-appearing nodes in the soft tissues of the neck, favor reactive but recommend clinical correlation. Reviewed, Interpreted and Dictated by Elsa Choi MD Transcribed by Kimberly Last Authenticated and [facility]
== END 2025-05-11 23:59 | disposition home or self-care (01) ==
LOC: RAD 11:15
PROVIDERS: PCP Family Medicine; Visit Provider Student in an Organized Health Care Education/Training Program
DX: R59.0 Localized enlarged lymph nodes (principal)
CPT/HCPCS: 76536